=== PATIENT | female | born 1960 | race African-American/Black ===

== ENCOUNTER 2018-10-17 12:56 | Emergency (ER) | payer MEDICARE, MEDICAID ==
[~2018-10-17] VITALS: Ht 170.2 cm; Wt 59.0 kg
[2018-10-17 14:25] VITALS: BP 158/68
[2018-10-17] MEDS ORDERED: cefTRIAXone SOD 1,000 MG VL IM ONE (15:15)
[2018-10-17] MEDS ORDERED: KETOROLAC TROMETH 60MG/2ML VIAL IM ONE (15:15)
== END 2018-10-17 15:32 | disposition home or self-care (01) ==
LOC: ER 13:06
DX: K12.2 Cellulitis and abscess of mouth (principal); E11.9 Type 2 diabetes mellitus without complications; I10 Essential (primary) hypertension; Z86.73 Personal history of transient ischemic attack (TIA), and cerebral infarction without residual deficits; Z88.6 Allergy status to analgesic agent
CPT/HCPCS: 70486; 96372; 99284; J0696; J1885

== ENCOUNTER 2019-03-06 10:04 | Emergency (ER) | payer MEDICARE, OTHER ==
[~2019-03-06] VITALS: Ht 170.2 cm; Wt 54.4 kg
[2019-03-06] MEDS ORDERED: SODIUM CHLORIDE 0.9% 1,000 ML IV ONE ×2 (10:45→11:30)
[2019-03-06] MEDS ORDERED: ONDANSETRON HCL 4 MG/2 ML VIAL IV ONE (10:45)
[2019-03-06] MEDS ORDERED: LORazepam 2MG/ML-1ML VIAL IV ONE (10:45)
[2019-03-06 10:47] LABS: Basophils # (auto) 0 uL; Basophils % (auto) 0.9 % (0.0-2.0); Eosinophils # (auto) 0 uL; Eosinophils % (auto) 0.2 % (0.0-7.0); Hematocrit 41.6 % (36.0-46.0); Lymphocytes % (auto) 23.2 % (10.0-50.0); Mean Corpuscular Hemoglobin 31.5 pg (28.0-32.0); Mean Corpuscular Hgb Conc. 33.7 g/dL (32.0-36.0); Mean Corpuscular Volume 93.4 fL (80.0-100.0); Monocytes # (auto) 0.2 uL; Monocytes % (auto) 4.4 % (0.0-12.0); Neutrophils % (auto) 71.3 % (37.0-80.0); Platelet Count (auto) 214 10^3/uL (140-450); Red Blood Cells 4.45 10^6/uL (4.0-5.20); Red Cell Distribution Width 14.5 % (11.8-14.3); White Blood Cell 4.2 10^3/uL (4.4-10.8)
[2019-03-06 11:05] LABS: Alanine Aminotransferase 21 U/L (13-56); Albumin 3.8 g/dL (3.4-5.0); Anion Gap 11 (5-15); Aspartate Aminotransferase 13 U/L (15-37); BUN/Creatinine Ratio 9.8; Blood Urea Nitrogen 12 mg/dL (7-18); Calcium 9.1 mg/dL (8.5-10.1); Carbon Dioxide 24 mmol/L (21-32); Chloride 109 mmol/L (98-107); GFR African American 57 mL/min; GFR Non-African American 47 mL/min; Glucose 228 mg/dL (74-106); Potassium 3.3 mmol/L (3.5-5.1); Sodium 144 mmol/L (136-145)
[2019-03-06 11:10] LABS: Alkaline Phosphatase 62 U/L (45-117); Bilirubin, Total 0.4 mg/dL (0.2-1.0); Total Protein 7.2 g/dL (6.4-8.2)
[2019-03-06 12:24] LABS: Salicylate 8.1 mg/dL (2.8-20.0)
[2019-03-06 12:25] LABS: Acetaminophen < 2.0 ug/mL (10-30)
[2019-03-06 13:25] LABS: Amylase 92 U/L (25-115); Lipase 41 U/L (73-393)
[2019-03-06 15:06] VITALS: BP 159/80
[2019-03-06] MEDS ORDERED: LORazepam 0.5 MG TAB PO ONE (16:30)
--- NOTE | 2019-03-06 16:46 | NUR ---
Received referral to see pt who is alert and oriented. Pt is sobbing and states she is addicted to [place]. She states that [place] Dr [place] has been prescribing this Narcotic for 4 yrs. She states she is taking too much and now cannot get off of it. She states she has severe pain in her legs and over the counter meds are not helping. Pt lives with her sister and will return there. Pt was given a packet of outpt drug rehab in the area.
== END 2019-03-06 17:24 | disposition home or self-care (01) ==
LOC: ER 10:07
DX: F11.23 Opioid dependence with withdrawal (principal); G89.4 Chronic pain syndrome; R10.9 Unspecified abdominal pain; E11.9 Type 2 diabetes mellitus without complications; I10 Essential (primary) hypertension; F17.210 Nicotine dependence, cigarettes, uncomplicated; Z86.73 Personal history of transient ischemic attack (TIA), and cerebral infarction without residual deficits; Z88.6 Allergy status to analgesic agent
CPT/HCPCS: 36415; 74176; 80053; 80329; 82010; 82150; 83690; 83880; 84484; 85025; 93005; 96374; 96375; 99284; J2060; J2405; J7030; 96361

== ENCOUNTER 2019-08-10 19:29 | Emergency (ER) | payer MEDICARE, OTHER ==
[~2019-08-10] VITALS: Ht 170.2 cm; Wt 58.1 kg
[~2019-08-10 19:29] MED LIST: AMLO5TAB15 PO; HYDR50TA15 PO; LISI40TA PO
[2019-08-10 20:26] LABS: Basophils # (auto) 0.1 uL; Basophils % (auto) 1.2 % (0.0-2.0); Eosinophils # (auto) 0.1 uL; Eosinophils % (auto) 1.8 % (0.0-7.0); Hematocrit 40.3 % (36.0-46.0); Hemoglobin 13.6 g/dL (12.2-16.2); Lymphocytes # (auto) 1.6 uL; Lymphocytes % (auto) 33.9 % (10.0-50.0); Mean Corpuscular Hemoglobin 31.9 pg (28.0-32.0); Mean Corpuscular Hgb Conc. 33.8 g/dL (32.0-36.0); Mean Corpuscular Volume 94.6 fL (80.0-100.0); Monocytes # (auto) 0.3 uL; Monocytes % (auto) 6.9 % (0.0-12.0); Neutrophils # (auto) 2.7 uL; Neutrophils % (auto) 56.2 % (37.0-80.0); Nucleated Red Blood Cells % 0.1 %; Platelet Count (auto) 238 10^3/uL (140-450); Red Blood Cells 4.26 10^6/uL (4.0-5.20); Red Cell Distribution Width 15.1 % (11.8-14.3); White Blood Cell 4.9 10^3/uL (4.4-10.8)
[2019-08-10 20:47] LABS: Albumin 3.9 g/dL (3.4-5.0); Anion Gap 8 (5-15); Blood Urea Nitrogen 23 mg/dL (7-18); Calcium 9.4 mg/dL (8.5-10.1); Carbon Dioxide 25 mmol/L (21-32); Chloride 109 mmol/L (98-107); Glucose 164 mg/dL (74-106); Magnesium 2.2 mg/dL (1.6-2.6); Sodium 142 mmol/L (136-145)
[2019-08-10 20:49] LABS: Alanine Aminotransferase 17 U/L (13-56); Aspartate Aminotransferase 19 U/L (15-37); BUN/Creatinine Ratio 20.5; GFR African American 64 mL/min; GFR Non-African American 53 mL/min
[2019-08-10 20:53] LABS: Alkaline Phosphatase 86 U/L (45-117); Bilirubin, Total 0.4 mg/dL (0.2-1.0)
[2019-08-10 21:00] LABS: Potassium 2.9 mmol/L (3.5-5.1)
[2019-08-10] MEDS ORDERED: POTASSIUM CHL 20MEQ/100ML 100 ML IV ONE (22:00)
[2019-08-11] MEDS ORDERED: ONDANSETRON HCL 4 MG/2 ML VIAL IV ONE ×2 (01:45→06:15)
[2019-08-11] MEDS ORDERED: MORPHINE SULFATE 4 MG/ML SYR/VIAL IV ONE ×2 (01:45→06:15)
[2019-08-11 04:00] VITALS: BP 172/57
[2019-08-11] MEDS ORDERED: POTASSIUM EFFERVESENT TAB 25 MEQ PO ONE (04:15)
[2019-08-14] MEDS ORDERED: DULO20CA PO (14:32)
[2019-08-14] MEDS ORDERED: CARB25TA3 PO (14:32)
== END 2019-08-11 07:04 | disposition home or self-care (01) ==
LOC: ER 19:35
DX: G89.29 Other chronic pain (principal); M79.602 Pain in left arm; E11.9 Type 2 diabetes mellitus without complications; I10 Essential (primary) hypertension; F17.210 Nicotine dependence, cigarettes, uncomplicated; Z86.73 Personal history of transient ischemic attack (TIA), and cerebral infarction without residual deficits; Z88.5 Allergy status to narcotic agent; Z79.899 Other long term (current) drug therapy
CPT/HCPCS: 36415; 70450; 80053; 83735; 84484; 85025; 93005; 96365; 96366; 96375; 96376; 99284; J2270; J2405; J3480

== ENCOUNTER 2023-01-04 11:25 | Inpatient (IN) | payer MEDICARE, OTHER ==
[~2023-01-04] VITALS: Ht 170.2 cm; Wt 57.8 kg
[~2023-01-04 11:25] MED LIST changes: +AMLO-489 PO; -AMLO5TAB15 PO; +CARB-80 PO; +DULO20CA PO; -LISI40TA PO; +LISI40TA11 PO
[2023-01-04] MEDS ORDERED: SODIUM CHLORIDE 0.9% 1,000 ML IV ONE ×2 (11:30)
[2023-01-04 12:00] LABS: Basophils # (auto) 0.1 10 ^3/uL (0-0.2); Eosinophils # (auto) 0 10 ^3/uL (0-0.8); Eosinophils % (auto) 0.7 % (0.0-7.0); Hematocrit 43.9 % (36.0-46.0); Hemoglobin 14.9 g/dL (12.2-16.2); Lymphocytes # (auto) 1.5 10 ^3/uL (0.4-5.4); Mean Corpuscular Hemoglobin 31.2 pg (28.0-32.0); Mean Corpuscular Volume 91.7 fL (80.0-100.0); Monocytes # (auto) 0.3 10 ^3/uL (0-1.3); Monocytes % (auto) 5.8 % (0.0-12.0); Neutrophils # (auto) 2.8 10 ^3/uL (1.6-8.6); Neutrophils % (auto) 59.5 % (37.0-80.0); Nucleated Red Blood Cells % 0.2 %; Red Blood Cells 4.79 10^6/uL (4.0-5.20); Red Cell Distribution Width 14.8 % (11.8-14.3); White Blood Cell 4.8 10^3/uL (4.4-10.8)
[2023-01-04] MEDS ORDERED: cloNIDine HCL 0.1 MG TAB PO ONE (12:00)
[2023-01-04 12:14] LABS: Potassium 3.4 mmol/L (3.5-5.1)
[2023-01-04 12:18] LABS: Albumin 4.4 g/dL (3.4-5.0); Calcium 10.2 mg/dL (8.5-10.1); Magnesium 2.3 mg/dL (1.6-2.6)
[2023-01-04 12:24] LABS: Bilirubin, Total 0.6 mg/dL (0.2-1.0); Total Protein 8.4 g/dL (6.4-8.2)
[2023-01-04 12:34] LABS: INR 0.97 (0.9-1.15); Partial Thromboplastin Time 30.1 sec (24.6-33.4)
[2023-01-04] MEDS: ENOXAPARIN SOD 60 MG/0.6 ML SYRINGE SC ONE ×2 (13:04→13:08)
[2023-01-04] MEDS ORDERED: DEXTROSE (50%) 50ML SYRG IV PRN (18:30)
[2023-01-04] MEDS ORDERED: PANTOPRAZOLE 40 MG/10 ML VIAL INJ IV ONE (18:30)
[2023-01-04] MEDS ORDERED: ACETAMINOPHEN 325 MG TAB PO PRN (18:30)
[2023-01-04] MEDS ORDERED: NITROGLYCERIN 0.4 MG SL TAB SL PRN (18:30)
[2023-01-04] MEDS: ACETAMINOPHEN 325 MG TAB PO PRN (19:10)
[2023-01-04] MEDS ORDERED: METOPROLOL SUCCINATE XL 50 MG TAB PO ONE (19:45)
[2023-01-04] MEDS: POTASSIUM CHL 20MEQ/100ML 100 ML IV SCH ×2 (20:03→22:45)
[2023-01-04] MEDS ORDERED: CARBIDOPA W LEVODOPA 25/100mg TABLET PO SCH (22:00)
[2023-01-04] MEDS: ENOXAPARIN SOD 60 MG/0.6 ML SYRINGE SC SCH (22:14)
[2023-01-04] MEDS: DULoxetine HCL 30 MG CAP PO SCH (22:15)
[2023-01-04] MEDS: ATORVASTATIN 20 MG TAB PO SCH (22:15)
[2023-01-04] MEDS: LISINOPRIL 10 MG TAB PO SCH (22:16)
[2023-01-04] MEDS: InsuLIN REG 1unit/0.01ml Soln (100units/ml) SC SCH (22:17)
[2023-01-04] MEDS: ACCU-CHEK COMFORT CURVE STRIP VI SCH (22:17)
[2023-01-04] MEDS: HYDROmorphone HCL 2 MG TAB PO PRN (22:19)
[2023-01-04] MEDS: hydrALAZINE HCL 25 MG TAB PO SCH (22:44)
[2023-01-05] VITALS (8 sets, daily range): BP systolic 160–193; BP diastolic 69–85
[2023-01-05] MEDS ORDERED: INSLANTI SC (01:48)
[2023-01-05] MEDS ORDERED: CLON0.1T PO (01:48)
[2023-01-05] MEDS ORDERED: LISI-716 PO (01:48)
[2023-01-05] MEDS: HYDROmorphone HCL 2 MG TAB PO PRN (01:48)
[2023-01-05] MEDS ORDERED: DICY20TA PO (01:48)
[2023-01-05] MEDS ORDERED: ATOR40TA52 PO (01:48)
[2023-01-05 02:24] LABS: Basophils # (auto) 0.1 10 ^3/uL (0-0.2); Basophils % (auto) 1.3 % (0.0-2.0); Eosinophils # (auto) 0.1 10 ^3/uL (0-0.8); Hematocrit 37.5 % (36.0-46.0); Hemoglobin 12.4 g/dL (12.2-16.2); Lymphocytes # (auto) 2.8 10 ^3/uL (0.4-5.4); Lymphocytes % (auto) 50.8 % (10.0-50.0); Mean Corpuscular Hemoglobin 30.7 pg (28.0-32.0); Mean Corpuscular Hgb Conc. 33.1 g/dL (32.0-36.0); Mean Corpuscular Volume 92.8 fL (80.0-100.0); Monocytes # (auto) 0.5 10 ^3/uL (0-1.3); Monocytes % (auto) 8.6 % (0.0-12.0); Neutrophils % (auto) 37.3 % (37.0-80.0); Nucleated Red Blood Cells % 0.1 %; Red Blood Cells 4.05 10^6/uL (4.0-5.20); Red Cell Distribution Width 14.6 % (11.8-14.3); White Blood Cell 5.5 10^3/uL (4.4-10.8)
[2023-01-05 02:37] LABS: INR 1.08 (0.9-1.15); Partial Thromboplastin Time 34.8 sec (24.6-33.4)
[2023-01-05 02:39] LABS: Albumin 3.5 g/dL (3.4-5.0); Calcium 9.5 mg/dL (8.5-10.1); Potassium 3.7 mmol/L (3.5-5.1)
[2023-01-05 02:42] LABS: Bilirubin, Total 0.5 mg/dL (0.2-1.0); Total Protein 6.8 g/dL (6.4-8.2)
[2023-01-05] MEDS: LACTATED RINGER'S 1,000 ML IV SCH ×2 (03:07→05:01)
[2023-01-05] MEDS: ONDANSETRON HCL 4 MG/2 ML VIAL IV PRN ×4 (06:09→22:39)
[2023-01-05] MEDS: InsuLIN REG 1unit/0.01ml Soln (100units/ml) SC SCH ×4 (06:09→22:24)
[2023-01-05] MEDS: ACCU-CHEK COMFORT CURVE STRIP VI SCH ×4 (06:10→22:18)
[2023-01-05] MEDS ORDERED: amLODIPine BESYLATE 5 MG TAB PO SCH (10:00)
[2023-01-05] MEDS ORDERED: ENOXAPARIN SOD 40 MG/0.4 ML SYRINGE SC SCH (10:00)
[2023-01-05 10:40] LABS: Urine Bacteria FEW /hpf (None Seen); Urine Blood TRACE /uL (Negative); Urine Specific Gravity 1.013 (1.001-1.035); Urine WBC 3 /hpf (0 - 5)
[2023-01-05] MEDS: hydrALAZINE HCL 25 MG TAB PO SCH ×3 (11:00→22:10)
[2023-01-05] MEDS: METOPROLOL SUCCINATE XL 50 MG TAB PO SCH (11:02)
[2023-01-05] MEDS: LISINOPRIL 10 MG TAB PO SCH ×2 (11:03→22:12)
[2023-01-05] MEDS: ASPirin 81 mg TAB PO SCH (11:05)
[2023-01-05] MEDS: DULoxetine HCL 30 MG CAP PO SCH ×2 (11:05→22:08)
[2023-01-05] MEDS: ENOXAPARIN SOD 60 MG/0.6 ML SYRINGE SC SCH ×2 (11:06→22:14)
[2023-01-05] MEDS: PANTOPRAZOLE 40 MG/10 ML VIAL INJ IV SCH (11:06)
[2023-01-05] MEDS: hydrALAZINE HCL 20 MG/ML VL IV PRN ×2 (12:58→21:17)
[2023-01-05] MEDS ORDERED: cloNIDine HCL 0.1 MG TAB PO SCH ×2 (14:00)
[2023-01-05] MEDS: LORazepam 2MG/ML-1ML VIAL IV PRN (14:23)
[2023-01-05 17:55] LABS: Alcohol, Urine < 3.0 mg/dL (0-10); Amphetamine Screen, Urine NEGATIVE (NEGATIVE); Barbiturate Scree,Urine NEGATIVE (NEGATIVE); Benzodiazephine Screen, Urine NEGATIVE (NEGATIVE); Cannabinoid Screen, Urine POSITIVE (NEGATIVE); Cocaine Screen, Urine NEGATIVE (NEGATIVE); Opiate Scree,Urine NEGATIVE (NEGATIVE); Phencyclidine Screen, Urine NEGATIVE (NEGATIVE)
[2023-01-05] MEDS ORDERED: cloNIDine HCL 0.1 MG TAB PO ONE (18:15)
[2023-01-05] MEDS ORDERED: LORazepam 2MG/ML-1ML VIAL IV PRN (18:15)
[2023-01-05] MEDS: HYDROcodone-ACET 5/325MG TAB PO PRN (18:21)
[2023-01-05] MEDS: cloNIDine HCL 0.1 MG TAB PO SCH (22:11)
[2023-01-05] MEDS: ATORVASTATIN 20 MG TAB PO SCH (22:12)
[2023-01-06] VITALS (11 sets, daily range): BP systolic 133–199; BP diastolic 55–80
[2023-01-06] MEDS: LORazepam 2MG/ML-1ML VIAL IV PRN (00:05)
[2023-01-06] MEDS: hydrALAZINE HCL 20 MG/ML VL IV PRN ×2 (04:56→13:29)
[2023-01-06 05:52] LABS: Basophils # (auto) 0 10 ^3/uL (0-0.2); Basophils % (auto) 0.5 % (0.0-2.0); Eosinophils # (auto) 0 10 ^3/uL (0-0.8); Hematocrit 37.7 % (36.0-46.0); Hemoglobin 12.6 g/dL (12.2-16.2); Lymphocytes # (auto) 1.1 10 ^3/uL (0.4-5.4); Lymphocytes % (auto) 17.3 % (10.0-50.0); Mean Corpuscular Hemoglobin 30.9 pg (28.0-32.0); Mean Corpuscular Hgb Conc. 33.5 g/dL (32.0-36.0); Mean Corpuscular Volume 92.1 fL (80.0-100.0); Monocytes # (auto) 0.5 10 ^3/uL (0-1.3); Monocytes % (auto) 7.7 % (0.0-12.0); Neutrophils # (auto) 4.8 10 ^3/uL (1.6-8.6); Neutrophils % (auto) 74.5 % (37.0-80.0); Red Cell Distribution Width 14.9 % (11.8-14.3); White Blood Cell 6.5 10^3/uL (4.4-10.8)
[2023-01-06 06:01] LABS: Albumin 3.6 g/dL (3.4-5.0); Calcium 9.7 mg/dL (8.5-10.1); Potassium 3.4 mmol/L (3.5-5.1)
[2023-01-06 06:07] LABS: BUN/Creatinine Ratio 14.8 (10.0-20.0); Bilirubin, Total 0.8 mg/dL (0.2-1.0); Total Protein 7.5 g/dL (6.4-8.2)
[2023-01-06] MEDS: ONDANSETRON HCL 4 MG/2 ML VIAL IV PRN (06:20)
[2023-01-06] MEDS: ACCU-CHEK COMFORT CURVE STRIP VI SCH ×4 (06:34→22:34)
[2023-01-06] MEDS: InsuLIN REG 1unit/0.01ml Soln (100units/ml) SC SCH ×4 (06:35→22:34)
[2023-01-06] MEDS: hydrALAZINE HCL 25 MG TAB PO SCH ×3 (07:10→23:51)
[2023-01-06] MEDS: cloNIDine HCL 0.1 MG TAB PO SCH ×3 (07:11→22:13)
[2023-01-06] MEDS ORDERED: POTASSIUM EFFERVESENT TAB 25 MEQ PO ONE (08:00)
[2023-01-06] MEDS: PROMETHAZINE HCL 25 MG/ML 1ML IV PRN ×3 (08:40→22:33)
[2023-01-06] MEDS: PANTOPRAZOLE 40 MG/10 ML VIAL INJ IV SCH (09:48)
[2023-01-06] MEDS: NIFEdipine ER 30 MG TAB PO SCH (09:48)
[2023-01-06] MEDS: HCTZ 25 MG TAB PO SCH (09:49)
[2023-01-06] MEDS: DULoxetine HCL 30 MG CAP PO SCH ×2 (09:49→22:14)
[2023-01-06] MEDS: ENOXAPARIN SOD 60 MG/0.6 ML SYRINGE SC SCH ×2 (09:50→22:14)
[2023-01-06] MEDS: ASPirin 81 mg TAB PO SCH (09:50)
[2023-01-06] MEDS: METOPROLOL SUCCINATE XL 50 MG TAB PO SCH (09:50)
[2023-01-06] MEDS ORDERED: GADOTERATE MEG 7.5 MMOL/15ml INJ (0.5MMOL/ml) IV ONE (11:30)
[2023-01-06] MEDS ORDERED: hydrALAZINE HCL 25 MG TAB PO SCH (14:00)
[2023-01-06] MEDS: HYDROcodone-ACET 5/325MG TAB PO PRN (14:45)
[2023-01-06] MEDS: ATORVASTATIN 20 MG TAB PO SCH (22:14)
[2023-01-07 05:00] VITALS: BP 165/67
[2023-01-07] MEDS ORDERED: PROMETHAZINE HCL 25 MG/ML 1ML ONE (05:20)
[2023-01-07] MEDS: cloNIDine HCL 0.1 MG TAB PO SCH ×3 (05:31→22:29)
[2023-01-07] MEDS: hydrALAZINE HCL 25 MG TAB PO SCH ×3 (05:31→17:10)
[2023-01-07] MEDS: PROMETHAZINE HCL 25 MG/ML 1ML IV PRN ×3 (05:32→20:39)
[2023-01-07] MEDS: HYDROcodone-ACET 5/325MG TAB PO PRN ×3 (05:53→20:33)
[2023-01-07] MEDS: ACCU-CHEK COMFORT CURVE STRIP VI SCH ×4 (05:53→22:42)
[2023-01-07] MEDS: InsuLIN REG 1unit/0.01ml Soln (100units/ml) SC SCH ×4 (06:16→22:41)
[2023-01-07 09:00] VITALS: BP 141/61
[2023-01-07] MEDS: PANTOPRAZOLE 40 MG/10 ML VIAL INJ IV SCH (10:18)
[2023-01-07] MEDS: HCTZ 25 MG TAB PO SCH (10:19)
[2023-01-07] MEDS: ASPirin 81 mg TAB PO SCH (10:20)
[2023-01-07] MEDS: DULoxetine HCL 30 MG CAP PO SCH ×2 (10:20→22:28)
[2023-01-07] MEDS: NIFEdipine ER 30 MG TAB PO SCH (10:20)
[2023-01-07] MEDS: ENOXAPARIN SOD 60 MG/0.6 ML SYRINGE SC SCH ×2 (10:21→22:29)
[2023-01-07] MEDS: METOPROLOL SUCCINATE XL 50 MG TAB PO SCH (10:21)
[2023-01-07] MEDS: ACETAMINOPHEN 325 MG TAB PO PRN (11:16)
[2023-01-07 12:57] VITALS: BP 144/57
[2023-01-07 17:00] VITALS: BP 148/63
[2023-01-07 22:00] VITALS: BP 121/60
[2023-01-07] MEDS: ATORVASTATIN 20 MG TAB PO SCH (22:29)
[2023-01-07] MEDS ORDERED: INSULIN LANTUS (GLARGINE) 1 /0.01ml (100units/ml) SC ONE (23:00)
[2023-01-08] MEDS: hydrALAZINE HCL 25 MG TAB PO SCH ×3 (00:35→12:08)
[2023-01-08] MEDS: HYDROcodone-ACET 5/325MG TAB PO PRN ×2 (04:33→12:09)
[2023-01-08] MEDS: PROMETHAZINE HCL 25 MG/ML 1ML IV PRN (04:34)
[2023-01-08 05:00] VITALS: BP 158/62
[2023-01-08] MEDS: cloNIDine HCL 0.1 MG TAB PO SCH (06:36)
[2023-01-08] MEDS: ACCU-CHEK COMFORT CURVE STRIP VI SCH ×2 (06:41→11:34)
[2023-01-08] MEDS: InsuLIN REG 1unit/0.01ml Soln (100units/ml) SC SCH ×2 (07:13→11:29)
[2023-01-08] MEDS: ENOXAPARIN SOD 60 MG/0.6 ML SYRINGE SC SCH (08:42)
[2023-01-08] MEDS: HCTZ 25 MG TAB PO SCH (08:43)
[2023-01-08] MEDS: NIFEdipine ER 30 MG TAB PO SCH (08:44)
[2023-01-08] MEDS: DULoxetine HCL 30 MG CAP PO SCH (08:44)
[2023-01-08] MEDS: ASPirin 81 mg TAB PO SCH (08:44)
[2023-01-08] MEDS: METOPROLOL SUCCINATE XL 50 MG TAB PO SCH (08:48)
[2023-01-08 09:00] VITALS: BP 171/90
[2023-01-08] MEDS: PANTOPRAZOLE 40 MG/10 ML VIAL INJ IV SCH (09:21)
[2023-01-08] MEDS ORDERED: cloNIDine HCL 0.1 MG TAB PO ONE (11:00)
[2023-01-08 13:00] VITALS: BP 181/74
[2023-01-08 13:15] VITALS: BP 139/75
[2023-01-08] MEDS ORDERED: APIXABAN 5 MG TAB PO SCH (22:00)
[2023-01-08] MEDS ORDERED: INSULIN LANTUS (GLARGINE) 1 /0.01ml (100units/ml) SC SCH (22:00)
== END 2023-01-08 13:53 | disposition home or self-care (01) | DRG 281 ==
LOC: ER 11:25 → TELE 18:45 → TELE-EAST 23:32
PROVIDERS: ADMIT Nurse Practitioner Family; ATTEND Family Medicine
DX: I16.1 Hypertensive emergency (principal); I21.A1 Myocardial infarction type 2; I69.354 Hemiplegia and hemiparesis following cerebral infarction affecting left non-dominant side; E11.42 Type 2 diabetes mellitus with diabetic polyneuropathy; E78.5 Hyperlipidemia, unspecified; G20 Parkinson's disease; G89.0 Central pain syndrome; F17.210 Nicotine dependence, cigarettes, uncomplicated; H54.8 Legal blindness, as defined in USA; K31.84 Gastroparesis; E11.43 Type 2 diabetes mellitus with diabetic autonomic (poly)neuropathy; Z79.01 Long term (current) use of anticoagulants; Z79.4 Long term (current) use of insulin; Z79.82 Long term (current) use of aspirin; Z79.899 Other long term (current) drug therapy; Z82.49 Family history of ischemic heart disease and other diseases of the circulatory system; Z88.6 Allergy status to analgesic agent; E11.65 Type 2 diabetes mellitus with hyperglycemia
CPT/HCPCS: 36415; 70450; 70551; 71045; 74183; 80053; 80307; 81001; 82088; 82306; 82607; 82962; 83036; 83735; 83880; 84244; 84443; 84484; 85025; 85610; 85730; 93005; 93306; 93886; 93976; 96365; 96372; 96375; C9113; G0378; J1815; J2405; J3480

== ENCOUNTER 2023-01-09 06:20 | Inpatient (IN) | payer MEDICARE, OTHER ==
[~2023-01-09] VITALS: Ht 170.2 cm; Wt 59.2 kg
[~2023-01-09 06:20] MED LIST changes: +ATOR40TA52 PO; +CLON0.1T PO; +DICY20TA PO; +INSLANTI SC; +LISI-716 PO
[2023-01-09 10:14] LABS: Urine WBC None Seen /hpf (0 - 5)
[2023-01-09 10:31] LABS: Urine Bacteria FEW /hpf (None Seen); Urine Blood Negative /uL (Negative); Urine Hyaline Cast FEW /lpf (0 - 2); Urine Specific Gravity 1.014 (1.001-1.035)
[2023-01-09 10:56] LABS: Alcohol, Urine < 3.0 mg/dL (0-10); Amphetamine Screen, Urine NEGATIVE (NEGATIVE); Barbiturate Scree,Urine NEGATIVE (NEGATIVE); Benzodiazephine Screen, Urine NEGATIVE (NEGATIVE); Cannabinoid Screen, Urine POSITIVE (NEGATIVE); Cocaine Screen, Urine NEGATIVE (NEGATIVE); Phencyclidine Screen, Urine NEGATIVE (NEGATIVE)
[2023-01-09 11:04] LABS: Opiate Scree,Urine NEGATIVE (NEGATIVE)
[2023-01-09] MEDS ORDERED: AZITHROMYCIN 500MG/ 250ML 250 ML IV ONE (15:00)
[2023-01-09] MEDS ORDERED: cefTRIAXone 1GM/50ML D5W 50 ML IV ONE (15:00)
[2023-01-09] MEDS ORDERED: ALBUTEROL SULF 2.5 MG/0.5ML(0.5%) NEB SOLN NEB PRN (15:00)
[2023-01-09 15:14] LABS: Basophils # (auto) 0.1 10 ^3/uL (0-0.2); Basophils % (auto) 1.1 % (0.0-2.0); Eosinophils # (auto) 0 10 ^3/uL (0-0.8); Eosinophils % (auto) 0.5 % (0.0-7.0); Hematocrit 47.8 % (36.0-46.0); Hemoglobin 15.9 g/dL (12.2-16.2); Lymphocytes # (auto) 1.5 10 ^3/uL (0.4-5.4); Lymphocytes % (auto) 29.6 % (10.0-50.0); Mean Corpuscular Hemoglobin 30.7 pg (28.0-32.0); Mean Corpuscular Hgb Conc. 33.3 g/dL (32.0-36.0); Monocytes # (auto) 0.4 10 ^3/uL (0-1.3); Neutrophils % (auto) 60.8 % (37.0-80.0); Nucleated Red Blood Cells % 0.2 %; Red Blood Cells 5.19 10^6/uL (4.0-5.20); Red Cell Distribution Width 14.3 % (11.8-14.3)
[2023-01-09 15:36] LABS: Albumin 4.5 g/dL (3.4-5.0); Anion Gap 12 (5-15); Blood Alcohol < 3.0 mg/dL (0-5); Blood Urea Nitrogen 33 mg/dL (7-18); Carbon Dioxide 21 mmol/L (21-32); Chloride 98 mmol/L (98-107); Magnesium 2.8 mg/dL (1.6-2.6); Potassium 3.5 mmol/L (3.5-5.1); Sodium 131 mmol/L (136-145)
[2023-01-09 15:40] LABS: Alanine Aminotransferase 59 U/L (13-56); Alkaline Phosphatase 84 U/L (45-117); Aspartate Aminotransferase 39 U/L (15-37); BUN/Creatinine Ratio 17.9 (10.0-20.0); Bilirubin, Total 0.7 mg/dL (0.2-1.0); GFR African American 36 mL/min; GFR Non-African American 29 mL/min; Total Protein 9.5 g/dL (6.4-8.2)
[2023-01-09 15:49] LABS: Glucose 408 mg/dL (74-106)
[2023-01-09 15:50] LABS: INR 0.92 (0.9-1.15); Partial Thromboplastin Time 21.4 sec (24.6-33.4)
[2023-01-09 15:52] VITALS: BP 184/74
[2023-01-09 15:54] LABS: Salicylate < 1.7 mg/dL (2.8-20.0)
[2023-01-09 15:56] LABS: Acetaminophen < 2.0 ug/mL (10-30)
[2023-01-09] MEDS ORDERED: NITROGLYCERIN 0.4 MG SL TAB SL PRN (16:00)
[2023-01-09] MEDS ORDERED: DEXTROSE (50%) 50ML SYRG IV PRN (16:00)
[2023-01-09] MEDS ORDERED: MORPHINE SULFATE INJ 2 MG/ml SYRG IV PRN (16:00)
[2023-01-09] MEDS: hydrALAZINE HCL 20 MG/ML VL IV PRN ×2 (16:55→23:34)
[2023-01-09] MEDS: InsuLIN REG 1unit/0.01ml Soln (100units/ml) SC SCH ×2 (16:57→22:00)
[2023-01-09] MEDS ORDERED: LORazepam 2MG/ML-1ML VIAL IV PRN (17:00)
[2023-01-09] MEDS ORDERED: DEXTROSE 10% 250 ML IV ONE (17:39)
[2023-01-09] MEDS: SODIUM CHLORIDE 0.9% 1,000 ML IV SCH (17:44)
[2023-01-09] MEDS: ACCU-CHEK COMFORT CURVE STRIP VI SCH ×2 (17:45→22:00)
[2023-01-09] MEDS: ALBUTEROL SULF 2.5 MG/0.5ML(0.5%) NEB SOLN NEB SCH ×2 (17:49→23:58)
[2023-01-09] MEDS: IPRATROPIUM BROM 0.5 MG/2.5ML INH SOL NEB SCH ×2 (17:50→23:58)
[2023-01-09] MEDS: ENOXAPARIN SOD 40 MG/0.4 ML SYRINGE SC SCH ×2 (18:02→22:48)
[2023-01-09] MEDS ORDERED: CARBIDOPA W LEVODOPA 25/100mg TABLET PO SCH (22:00)
[2023-01-09] MEDS: DULoxetine HCL 30 MG CAP PO SCH (22:43)
[2023-01-09] MEDS: cloNIDine HCL 0.1 MG TAB PO SCH (22:44)
[2023-01-09] MEDS: DICYCLOMINE HCL 10 MG CAP PO SCH (22:44)
[2023-01-10] MEDS ORDERED: dilTIAZem 25 MG/5 ML VIAL IV ONE ×2 (02:15→08:00)
[2023-01-10] MEDS: hydrALAZINE HCL 20 MG/ML VL IV PRN (05:13)
[2023-01-10] MEDS: SODIUM CHLORIDE 0.9% 1,000 ML IV SCH ×2 (05:20→19:30)
[2023-01-10] MEDS: IPRATROPIUM BROM 0.5 MG/2.5ML INH SOL NEB SCH ×2 (06:24→19:00)
[2023-01-10] MEDS: ALBUTEROL SULF 2.5 MG/0.5ML(0.5%) NEB SOLN NEB SCH ×2 (06:24→19:00)
[2023-01-10] MEDS: cloNIDine HCL 0.1 MG TAB PO SCH ×3 (06:31→22:28)
[2023-01-10] MEDS: DICYCLOMINE HCL 10 MG CAP PO SCH ×3 (06:31→22:28)
[2023-01-10] MEDS: InsuLIN REG 1unit/0.01ml Soln (100units/ml) SC SCH ×4 (06:52→22:26)
[2023-01-10] MEDS: ACCU-CHEK COMFORT CURVE STRIP VI SCH ×4 (07:06→22:16)
[2023-01-10 08:40] LABS: Basophils # (auto) 0.1 10 ^3/uL (0-0.2); Basophils % (auto) 1.1 % (0.0-2.0); Eosinophils # (auto) 0 10 ^3/uL (0-0.8); Eosinophils % (auto) 0.3 % (0.0-7.0); Hematocrit 43.2 % (36.0-46.0); Hemoglobin 14.7 g/dL (12.2-16.2); Lymphocytes # (auto) 1.2 10 ^3/uL (0.4-5.4); Lymphocytes % (auto) 22.9 % (10.0-50.0); Mean Corpuscular Hemoglobin 30.9 pg (28.0-32.0); Mean Corpuscular Volume 90.9 fL (80.0-100.0); Monocytes # (auto) 0.3 10 ^3/uL (0-1.3); Monocytes % (auto) 5.6 % (0.0-12.0); Neutrophils # (auto) 3.5 10 ^3/uL (1.6-8.6); Neutrophils % (auto) 70.1 % (37.0-80.0); Nucleated Red Blood Cells % 0.2 %; Red Blood Cells 4.75 10^6/uL (4.0-5.20); Red Cell Distribution Width 14.4 % (11.8-14.3); White Blood Cell 5.1 10^3/uL (4.4-10.8)
[2023-01-10 08:55] LABS: Albumin 3.8 g/dL (3.4-5.0); Calcium 10.3 mg/dL (8.5-10.1)
[2023-01-10 08:58] LABS: BUN/Creatinine Ratio 23.6 (10.0-20.0); Bilirubin, Total 0.6 mg/dL (0.2-1.0); Total Protein 7.8 g/dL (6.4-8.2)
[2023-01-10] MEDS: cefTRIAXone 1GM/50ML D5W 50 ML IV SCH (09:26)
[2023-01-10] MEDS ORDERED: ENOXAPARIN SOD 40 MG/0.4 ML SYRINGE SC SCH (10:00)
[2023-01-10 10:02] LABS: Potassium 2.5 mmol/L (3.5-5.1)
[2023-01-10] MEDS: ATORVASTATIN 20 MG TAB PO SCH (10:15)
[2023-01-10] MEDS: ASPirin-EC 81 mg tab PO SCH (10:15)
[2023-01-10] MEDS: DULoxetine HCL 30 MG CAP PO SCH ×2 (10:15→22:28)
[2023-01-10] MEDS: amLODIPine BESYLATE 5 MG TAB PO SCH (10:16)
[2023-01-10] MEDS: ENOXAPARIN SOD 60 MG/0.6 ML SYRINGE SC SCH (10:16)
[2023-01-10] MEDS: AZITHROMYCIN 500MG/ 250ML 250 ML IV SCH (10:16)
[2023-01-10 12:51] LABS: Hepatitis A Ab IgM Negative
[2023-01-10 12:52] LABS: Hepatitis B Core IgM Negative; Hepatitis C Antibody Negative (Negative)
[2023-01-10] MEDS ORDERED: POTASSIUM CHL 20 Meq TABLET PO ONE (14:00)
[2023-01-10] MEDS: ONDANSETRON HCL 4 MG/2 ML VIAL IV PRN (14:50)
[2023-01-10] MEDS: hydrALAZINE HCL 25 MG TAB PO SCH ×2 (17:29→22:00)
[2023-01-10] MEDS: INSULIN LANTUS (GLARGINE) 1 /0.01ml (100units/ml) SC SCH (22:27)
[2023-01-11] MEDS: IPRATROPIUM BROM 0.5 MG/2.5ML INH SOL NEB SCH ×4 (00:15→18:33)
[2023-01-11] MEDS: ALBUTEROL SULF 2.5 MG/0.5ML(0.5%) NEB SOLN NEB SCH ×4 (00:15→18:33)
[2023-01-11] MEDS: cloNIDine HCL 0.1 MG TAB PO SCH ×3 (06:27→14:27)
[2023-01-11] MEDS: InsuLIN REG 1unit/0.01ml Soln (100units/ml) SC SCH ×4 (06:28→22:25)
[2023-01-11] MEDS: hydrALAZINE HCL 25 MG TAB PO SCH ×4 (06:28→22:11)
[2023-01-11] MEDS: DICYCLOMINE HCL 10 MG CAP PO SCH ×3 (06:28→22:10)
[2023-01-11 06:37] LABS: BUN/Creatinine Ratio 19.2 (10.0-20.0); Calcium 9.5 mg/dL (8.5-10.1); Magnesium 2.4 mg/dL (1.6-2.6)
[2023-01-11] MEDS: ACCU-CHEK COMFORT CURVE STRIP VI SCH ×4 (06:40→22:26)
[2023-01-11 07:04] LABS: Basophils # (auto) 0.1 10 ^3/uL (0-0.2); Basophils % (auto) 1.3 % (0.0-2.0); Eosinophils # (auto) 0.1 10 ^3/uL (0-0.8); Eosinophils % (auto) 1.2 % (0.0-7.0); Hematocrit 37.5 % (36.0-46.0); Hemoglobin 12.8 g/dL (12.2-16.2); Lymphocytes # (auto) 1.9 10 ^3/uL (0.4-5.4); Lymphocytes % (auto) 37.8 % (10.0-50.0); Mean Corpuscular Hemoglobin 31.1 pg (28.0-32.0); Mean Corpuscular Hgb Conc. 34.1 g/dL (32.0-36.0); Mean Corpuscular Volume 91.3 fL (80.0-100.0); Monocytes # (auto) 0.5 10 ^3/uL (0-1.3); Monocytes % (auto) 9.7 % (0.0-12.0); Neutrophils # (auto) 2.5 10 ^3/uL (1.6-8.6); Nucleated Red Blood Cells % 0.1 %; Red Blood Cells 4.11 10^6/uL (4.0-5.20); Red Cell Distribution Width 14.4 % (11.8-14.3)
[2023-01-11] MEDS: amLODIPine BESYLATE 5 MG TAB PO SCH (08:31)
[2023-01-11] MEDS: cefTRIAXone 1GM/50ML D5W 50 ML IV SCH (08:31)
[2023-01-11] MEDS: ENOXAPARIN SOD 60 MG/0.6 ML SYRINGE SC SCH (08:31)
[2023-01-11] MEDS: ATORVASTATIN 20 MG TAB PO SCH (08:31)
[2023-01-11] MEDS: ASPirin-EC 81 mg tab PO SCH (08:31)
[2023-01-11] MEDS: SODIUM CHLORIDE 0.9% 1,000 ML IV SCH ×2 (08:32→22:17)
[2023-01-11 08:36] LABS: Potassium 2.9 mmol/L (3.5-5.1)
[2023-01-11] MEDS ORDERED: POTASSIUM CHL 20 Meq TABLET PO ONE (08:45)
[2023-01-11] MEDS: AZITHROMYCIN 500MG/ 250ML 250 ML IV SCH (09:21)
[2023-01-11] MEDS: DULoxetine HCL 30 MG CAP PO SCH ×2 (09:21→22:12)
[2023-01-11] MEDS: SPIRONOLACTONE 25 MG TAB PO SCH (10:33)
[2023-01-11 22:00] VITALS: BP 141/57
[2023-01-11] MEDS: INSULIN LANTUS (GLARGINE) 1 /0.01ml (100units/ml) SC SCH (22:25)
[2023-01-12 05:00] VITALS: BP 137/70
[2023-01-12] MEDS: IPRATROPIUM BROM 0.5 MG/2.5ML INH SOL NEB SCH ×4 (05:59→18:15)
[2023-01-12] MEDS: ALBUTEROL SULF 2.5 MG/0.5ML(0.5%) NEB SOLN NEB SCH ×4 (05:59→18:15)
[2023-01-12] MEDS: DICYCLOMINE HCL 10 MG CAP PO SCH ×3 (06:06→22:01)
[2023-01-12] MEDS: cloNIDine HCL 0.1 MG TAB PO SCH ×3 (06:06→22:01)
[2023-01-12] MEDS: hydrALAZINE HCL 25 MG TAB PO SCH ×3 (06:06→22:01)
[2023-01-12] MEDS: InsuLIN REG 1unit/0.01ml Soln (100units/ml) SC SCH ×4 (06:17→22:03)
[2023-01-12] MEDS: ACCU-CHEK COMFORT CURVE STRIP VI SCH ×4 (06:17→22:02)
[2023-01-12 06:18] LABS: Calcium 9.1 mg/dL (8.5-10.1); Potassium 3.2 mmol/L (3.5-5.1)
[2023-01-12] MEDS: ONDANSETRON HCL 4 MG/2 ML VIAL IV PRN (06:18)
[2023-01-12 06:21] LABS: BUN/Creatinine Ratio 22.5 (10.0-20.0)
[2023-01-12] MEDS: SODIUM CHLORIDE 0.9% 1,000 ML IV SCH (07:50)
[2023-01-12 08:30] VITALS: BP 137/70
[2023-01-12] MEDS: DULoxetine HCL 30 MG CAP PO SCH ×2 (08:41→22:02)
[2023-01-12] MEDS: SPIRONOLACTONE 25 MG TAB PO SCH (08:41)
[2023-01-12] MEDS: ASPirin-EC 81 mg tab PO SCH (08:41)
[2023-01-12] MEDS: cefTRIAXone 1GM/50ML D5W 50 ML IV SCH (08:41)
[2023-01-12] MEDS: AZITHROMYCIN 500MG/ 250ML 250 ML IV SCH (08:41)
[2023-01-12] MEDS: ENOXAPARIN SOD 60 MG/0.6 ML SYRINGE SC SCH (08:42)
[2023-01-12] MEDS: ATORVASTATIN 20 MG TAB PO SCH (08:42)
[2023-01-12] MEDS ORDERED: PROMETHAZINE HCL 25 MG/ML 1ML IV PRN (08:45)
[2023-01-12 09:00] VITALS: BP 112/50
[2023-01-12] MEDS ORDERED: POTASSIUM CHL 20 Meq TABLET PO ONE (09:00)
[2023-01-12] MEDS: HYDROcodone-ACET 5/325MG TAB PO PRN ×2 (09:15→18:51)
[2023-01-12] MEDS: amLODIPine BESYLATE 5 MG TAB PO SCH (10:00)
[2023-01-12 13:00] VITALS: BP 119/74
[2023-01-12 17:05] VITALS: BP 144/66
[2023-01-12 22:00] VITALS: BP 111/67
[2023-01-12] MEDS: INSULIN LANTUS (GLARGINE) 1 /0.01ml (100units/ml) SC SCH (22:04)
[2023-01-13 05:00] VITALS: BP 146/70
[2023-01-13] MEDS: hydrALAZINE HCL 25 MG TAB PO SCH ×2 (05:21→14:45)
[2023-01-13] MEDS: DICYCLOMINE HCL 10 MG CAP PO SCH ×2 (05:22→14:36)
[2023-01-13] MEDS: cloNIDine HCL 0.1 MG TAB PO SCH ×2 (05:22→14:55)
[2023-01-13] MEDS: ACCU-CHEK COMFORT CURVE STRIP VI SCH ×2 (06:50→11:33)
[2023-01-13] MEDS: InsuLIN REG 1unit/0.01ml Soln (100units/ml) SC SCH ×2 (06:56→12:13)
[2023-01-13] MEDS: ALBUTEROL SULF 2.5 MG/0.5ML(0.5%) NEB SOLN NEB SCH ×5 (07:19→13:32)
[2023-01-13] MEDS: IPRATROPIUM BROM 0.5 MG/2.5ML INH SOL NEB SCH ×4 (07:20→13:32)
[2023-01-13] MEDS: cefTRIAXone 1GM/50ML D5W 50 ML IV SCH ×2 (08:28→09:08)
[2023-01-13] MEDS: HYDROcodone-ACET 5/325MG TAB PO PRN ×2 (08:28→14:32)
[2023-01-13 09:00] VITALS: BP 144/70
[2023-01-13] MEDS: AZITHROMYCIN 500MG/ 250ML 250 ML IV SCH (09:10)
[2023-01-13] MEDS: ASPirin-EC 81 mg tab PO SCH (09:11)
[2023-01-13] MEDS: ENOXAPARIN SOD 60 MG/0.6 ML SYRINGE SC SCH (09:11)
[2023-01-13] MEDS: ATORVASTATIN 20 MG TAB PO SCH (09:11)
[2023-01-13] MEDS: DULoxetine HCL 30 MG CAP PO SCH (09:11)
[2023-01-13] MEDS: SPIRONOLACTONE 25 MG TAB PO SCH (09:11)
[2023-01-13] MEDS: amLODIPine BESYLATE 5 MG TAB PO SCH (09:12)
[2023-01-13 10:24] LABS: Calcium 9.3 mg/dL (8.5-10.1); Potassium 4.1 mmol/L (3.5-5.1)
[2023-01-13] MEDS ORDERED: SPIR50TA2 PO (10:44)
[2023-01-13] MEDS ORDERED: HYDR-4902 PO (10:44)
[2023-01-13] MEDS ORDERED: DOCU-94 PO (10:44)
[2023-01-13] MEDS ORDERED: CLON0.2T PO (10:44)
[2023-01-13 12:25] VITALS: BP 144/70
[2023-01-13 13:00] VITALS: BP 144/57
== END 2023-01-13 15:12 | disposition home or self-care (01) | DRG 71 ==
LOC: ER 06:20 → EDBD 06:20 → TELE 16:00 → TELE-WESTW 01-11 16:04
PROVIDERS: ADMIT Nurse Practitioner Family; ATTEND Internal Medicine Geriatric Medicine
DX: G93.41 Metabolic encephalopathy (principal); I69.354 Hemiplegia and hemiparesis following cerebral infarction affecting left non-dominant side; N17.9 Acute kidney failure, unspecified; G40.209 Localization-related (focal) (partial) symptomatic epilepsy and epileptic syndromes with complex partial seizures, not intractable, without status epilepticus; E11.42 Type 2 diabetes mellitus with diabetic polyneuropathy; E78.5 Hyperlipidemia, unspecified; G89.0 Central pain syndrome; H54.8 Legal blindness, as defined in USA; Z20.822 Contact with and (suspected) exposure to COVID-19; E11.22 Type 2 diabetes mellitus with diabetic chronic kidney disease; E83.52 Hypercalcemia; E86.9 Volume depletion, unspecified; E87.6 Hypokalemia; R74.01 Elevation of levels of liver transaminase levels; R77.8 Other specified abnormalities of plasma proteins; R79.89 Other specified abnormal findings of blood chemistry; I12.9 Hypertensive chronic kidney disease with stage 1 through stage 4 chronic kidney disease, or unspecified chronic kidney disease; N18.9 Chronic kidney disease, unspecified; F41.9 Anxiety disorder, unspecified; F20.9 Schizophrenia, unspecified; F17.210 Nicotine dependence, cigarettes, uncomplicated; Z88.6 Allergy status to analgesic agent; Z79.01 Long term (current) use of anticoagulants; Z79.4 Long term (current) use of insulin; Z79.82 Long term (current) use of aspirin; Z79.899 Other long term (current) drug therapy; Z88.8 Allergy status to other drugs, medicaments and biological substances; Z82.49 Family history of ischemic heart disease and other diseases of the circulatory system; Z88.5 Allergy status to narcotic agent
CPT/HCPCS: 36415; 70450; 70551; 71045; 80048; 80053; 80074; 80307; 80320; 80329; 81001; 82962; 83605; 83735; 83930; 83970; 84484; 85025; 85379; 85610; 85730; 87040; 87426; 87804; 93005; 94640; 95819; 96365; 96368; 97110; 97116; 97163; 97530; G0378; J0696; J1815; J2405

== ENCOUNTER 2023-02-21 13:00 | Emergency (ER) | payer MEDICARE, OTHER ==
[~2023-02-21] VITALS: Ht 170.2 cm; Wt 57.0 kg
[~2023-02-21 13:00] MED LIST changes: -AMLO-489 PO; +AMLO1TAB22 PO; +CARB-118 PO; -CARB-80 PO; -CLON0.1T PO; +CLON0.2T PO; +DOCU-94 PO; +HYDR-4297 PO; +HYDR-4902 PO; -HYDR50TA15 PO; -LISI-716 PO; -LISI40TA11 PO; +LISI40TA16 PO; +SPIR50TA2 PO
[2023-02-21] MEDS ORDERED: ONDANSETRON HCL 4 MG/2 ML VIAL IM ONE (19:15)
[2023-02-21] MEDS ORDERED: HYDROmorphone HCL 2 MG/ML VL/or syr IM ONE (19:15)
[2023-02-21 20:35] VITALS: BP 145/75
== END 2023-02-21 20:37 | disposition home or self-care (01) ==
LOC: ER 13:00 → EDBD 13:00 → ER 20:37
DX: R25.1 Tremor, unspecified (principal); G89.4 Chronic pain syndrome; I10 Essential (primary) hypertension; E11.9 Type 2 diabetes mellitus without complications; K31.84 Gastroparesis; Z86.73 Personal history of transient ischemic attack (TIA), and cerebral infarction without residual deficits; Z90.89 Acquired absence of other organs
CPT/HCPCS: 70450; 93005; 96372; 99285; J1170; J2405

== ENCOUNTER 2023-02-21 23:19 | Emergency (ER) | payer MEDICARE, OTHER ==
[~2023-02-21] VITALS: Ht 170.2 cm; Wt 57.7 kg
[2023-02-22 00:24] LABS: Basophils # (auto) 0.1 10 ^3/uL (0-0.2); Basophils % (auto) 1.1 % (0.0-2.0); Eosinophils # (auto) 0.1 10 ^3/uL (0-0.8); Eosinophils % (auto) 0.9 % (0.0-7.0); Hematocrit 43.8 % (36.0-46.0); Hemoglobin 14.3 g/dL (12.2-16.2); Lymphocytes # (auto) 1.7 10 ^3/uL (0.4-5.4); Lymphocytes % (auto) 28.7 % (10.0-50.0); Mean Corpuscular Hgb Conc. 32.6 g/dL (32.0-36.0); Mean Corpuscular Volume 95.1 fL (80.0-100.0); Monocytes # (auto) 0.5 10 ^3/uL (0-1.3); Monocytes % (auto) 8.2 % (0.0-12.0); Neutrophils # (auto) 3.5 10 ^3/uL (1.6-8.6); Neutrophils % (auto) 61.1 % (37.0-80.0); Nucleated Red Blood Cells % 0.1 %; Red Blood Cells 4.61 10^6/uL (4.0-5.20); Red Cell Distribution Width 14.9 % (11.8-14.3); White Blood Cell 5.8 10^3/uL (4.4-10.8)
[2023-02-22 00:31] LABS: Calcium 10.2 mg/dL (8.5-10.1); Chloride 100 mmol/L (98-107); Potassium 4.1 mmol/L (3.5-5.1); Sodium 132 mmol/L (136-145)
[2023-02-22 00:41] LABS: Albumin 4.4 g/dL (3.4-5.0); Alkaline Phosphatase 67 U/L (45-117); Anion Gap 15 (5-15); Aspartate Aminotransferase 17 U/L (15-37); Bilirubin, Total 0.8 mg/dL (0.2-1.0); Blood Urea Nitrogen 46 mg/dL (7-18); Carbon Dioxide 17 mmol/L (21-32); GFR African American 36 mL/min; GFR Non-African American 29 mL/min; Total Protein 8.8 g/dL (6.4-8.2)
[2023-02-22 00:50] LABS: Alanine Aminotransferase 27 U/L (13-56)
[2023-02-22 00:57] LABS: Glucose 441 mg/dL (74-106)
[2023-02-22 01:25] LABS: Urine Bacteria FEW /hpf (None Seen); Urine Blood Negative /uL (Negative); Urine Hyaline Cast FEW /lpf (0 - 2); Urine Specific Gravity 1.024 (1.001-1.035); Urine WBC 1 /hpf (0 - 5)
[2023-02-22 07:44] VITALS: BP 183/84
[2023-02-22] MEDS ORDERED: LABETALOL HCL 5 MG/ML 4ML SYRINGE IV ONE (08:15)
[2023-02-22] MEDS ORDERED: SODIUM CHLORIDE 0.9% 1,000 ML IV ONE ×2 (08:15)
[2023-02-22] MEDS ORDERED: InsuLIN REG 1unit/0.01ml Soln (100units/ml) IV ONE (08:15)
== END 2023-02-22 12:10 | disposition home or self-care (01) ==
LOC: ER 23:19
DX: I16.0 Hypertensive urgency (principal); E11.65 Type 2 diabetes mellitus with hyperglycemia; Z86.73 Personal history of transient ischemic attack (TIA), and cerebral infarction without residual deficits; Z90.89 Acquired absence of other organs; Z79.4 Long term (current) use of insulin; Z79.899 Other long term (current) drug therapy; Z88.2 Allergy status to sulfonamides; Z88.8 Allergy status to other drugs, medicaments and biological substances
CPT/HCPCS: 36415; 80053; 81001; 85025; 96361; 96374; 96375; 99284; J1815; J3490; J7030

== ENCOUNTER 2023-05-05 13:13 | Emergency (ER) | payer MEDICARE, OTHER ==
[~2023-05-05] VITALS: Ht 170.2 cm; Wt 53.8 kg
[2023-05-05] MEDS ORDERED: cloNIDine HCL 0.1 MG TAB PO ONE (13:30)
[2023-05-05 13:44] VITALS: BP 205/82; PULSE 125; RESP 19; TEMP 98.2; O2SAT 99
[2023-05-05] MEDS ORDERED: HYDROcodone-ACET 7.5/325MG TAB PO ONE (13:45)
[2023-05-05] MEDS ORDERED: HYDR-4902 PO (14:00)
== END 2023-05-05 14:42 | disposition home or self-care (01) ==
LOC: ER 13:13
DX: I16.0 Hypertensive urgency (principal); G89.4 Chronic pain syndrome; I10 Essential (primary) hypertension; E11.9 Type 2 diabetes mellitus without complications; E78.5 Hyperlipidemia, unspecified; F15.90 Other stimulant use, unspecified, uncomplicated; Z90.89 Acquired absence of other organs; Z86.73 Personal history of transient ischemic attack (TIA), and cerebral infarction without residual deficits; Z98.890 Other specified postprocedural states; Z88.5 Allergy status to narcotic agent; Z88.6 Allergy status to analgesic agent; Z79.4 Long term (current) use of insulin; Z79.1 Long term (current) use of non-steroidal anti-inflammatories (NSAID); Z79.899 Other long term (current) drug therapy
CPT/HCPCS: 93005; 99283; J7030